=== PATIENT | female | born 1960 | race Caucasian/White ===

== ENCOUNTER 2020-12-28 08:19 | Emergency (ER) | payer OTHER, SELFPAY ==
[2020-12-28 08:19] VITALS: BP 165/106; PULSE 96; RESP 24; TEMP 36.6; O2SAT 94; BMI 43.7
[2020-12-28 08:30] VITALS: O2SAT 96
[2020-12-28 08:34] VITALS: BP 142/82; PULSE 76; RESP 18; TEMP 36.4; O2SAT 96
--- NOTE | 2020-12-28 09:03 | EKG12_ITS ---
Test Reason : SOB Blood Pressure : / mmHG Vent. Rate : 075 BPM Atrial Rate : 075 BPM P-R Int : 156 ms QRS Dur : 086 ms QT Int : 376 ms P-R-T Axes : 051 087 033 degrees QTc Int : 419 ms Sinus rhythm with Premature atrial complexes Low voltage QRS Borderline ECG Confirmed by GRISELDA BURTON, VAUGHN ([id number]), slot editor DONN PERLA ([id number]) on 12/29/2020 9:02:32 AM Referred By: RAJENDRA Confirmed By:VAUGHN VILLALOBOS MD
--- NOTE | 2020-12-28 09:03 | RAD_ITS ---
STUDY: X-RAY CHEST REASON FOR EXAM: Female, 60 years old. COUGH TECHNIQUE: Single AP portable view of the chest. COMPARISON: None. FINDINGS: EKG electrodes are seen. The lungs are clear and expanded. There is no demonstrated pleural abnormality. Normal size heart. Normal mediastinum and fredrick. Normal visualized pulmonary arteries. Normal visualized aortic arch and descending thoracic aorta. There are degenerative changes of the visualized thoracic spine. Normal visualized ribs, clavicles, and shoulders. There is no demonstrated abnormality of the visualized soft tissue structures of the upper abdomen. RAD/Chest 1 View (Portable) IMPRESSION: No acute abnormality is seen. Electronically Signed: Cristopher Flores MD at 9:33 EDT , Service support ,
--- NOTE | 2020-12-28 09:04 | EDS_ITS ---
HPI History of Present Illness Chief Complaint: Shortness of Breath Informant: patient and spouse/S.O. Narrative Narrative: 60-year-old female presents to the emergency department with chief complaint of shortness of breath. Patient states that 5 days ago she developed a sore throat followed by nasal congestion and cough. She states now she is dyspneic particularly when she lays down. She states that she coughs but cannot expectorate. She denies any fever nausea vomiting or diarrhea. She notes generalized soreness. Her was sick 1 week before she developed symptoms. [facility] Medical History HTN (hypertension) Home Medications Lipitor 10 mg PO/SL DAILY 12/28/20 [History Last Taken Unknown] albuterol sulfate [Ventolin HFA] 2 puff INHALATION Q4H PRN PRN #1 inhaler 12/28/20 [Rx Last Taken Unknown] lisinopril 10 mg PO DAILY 12/28/20 [History Last Taken Unknown] prednisone 60 mg PO DAILY #15 tablet 12/28/20 [Rx Last Taken Unknown] Allergy/AdvReac Type Severity Reaction Status Date / Time No Known Allergies Allergy Verified 12/28/20 08:35 Surgical History History of tubal ligation Hx of tonsillectomy Social History (Updated 12/28/20 @ 09:[address] Ilya Dietz DO) Smoking Status: Current every day smoker tobacco type: cigarettes substance use type: does not use ROS ROS ED Constitutional Constitutional ED: Denies chills or weight loss Eyes Eyes: Denies change in vision or diplopia ENT ENT ED: Reports rhinorrhea and sore throat; Denies ear pain Cardiovascular Cardiovascular: Denies chest pain, orthopnea, palpitations or racing heartbeat Respiratory/Chest Respiratory/Chest: Reports cough, dyspnea and dyspnea on exertion; Denies orthopnea Gastrointestinal Gastrointestinal: Denies abdominal pain, diarrhea, nausea or vomiting Genitourinary Genitourinary ED: Denies dysuria, hematuria or urinary frequency Musculoskeletal Musculoskeletal: Reports myalgias; Denies arthralgias Integumentary Denies abscess or rash Neurologic Neurologic: Denies headache(s) or weakness Psychiatric Psychiatric: Denies anxiety, depression, suicidal ideation or suicidal thoughts Endocrine Endocrinology: Denies polydipsia, polyphagia or polyuria Allergic/Immunologic Allergic/Immunologic ED: Denies mouth swelling, tongue swelling or urticaria EXAM Physical Exam Const Vital Signs: 12/28/20 08:19 12/28/20 08:30 12/28/20 08:34 Temperature 97.8 F 97.6 F L Temperature Source Temporal Temporal Pulse Rate 96 76 Respiratory Rate 24 H 18 Respiratory Effort Short of Breath Respiratory Depth Shallow Respiratory Pattern Tachypnea Blood Pressure 165/106 H 142/82 H Blood Pressure Mean 125 102 Pulse Ox 94 96 Oxygen Delivery Method Room Air Room Air Room Air 12/28/20 10:06 12/28/20 10:15 Temperature 98.3 F Temperature Source Oral Pulse Rate 81 74 Respiratory Rate 20 H 22 H Respiratory Effort Respiratory Depth Respiratory Pattern Blood Pressure 168/82 H Blood Pressure Mean 110 Pulse Ox 94 Oxygen Delivery Method Room Air Positive well developed and obese General Appearance ED: well developed Nutritional Appearance: obese HEENT Reports normocephalic, head/scalp atraumatic and moist mucous membranes Eyes PERRL and EOMs intact bilaterally Neck no lymphadenopathy, supple and no JVD Resp Resp Narrative: Patient is tachypneic. There is a faint expiratory wheeze. Cardio regular rate, regular rhythm and no murmurs GI normal to inspection, nondistended, normoactive bowel sounds and non-tender Palpation: soft Back/Spine no CVA tenderness and normal ROM Extremity normal to inspection General Extremety ED: Negative for edema General Extremity: Negative for edema Neuro oriented x3 and CN's II-XII intact bilaterally Sensorium / Orientation: alert Motor Exam: strength 5/5 throughout Psych mental status grossly normal Mood & Affect: Negative for depressed or tearful Skin no rashes or lesions noted and no wounds MDM MDM MDM Narrative Medical decision making narrative: Basic blood work showed a white count of 8 with a hemoglobin of 16.3. Troponin at 9. Glucose 124. D-dimer elevated at 0.60. My interpretation of the chest x-ray is no acute process. Because of the elevated D-dimer and her dyspnea a CTA of the chest was ordered. This was negative for infiltrate and pulmonary embolisms. Patient received a DuoNeb. She feels better. At this point I think the patient most likely has viral bronchitis with bronchospasm. We talked about smoking cessation. She is to follow-up with primary care return if worsening Lab Data Attestation: I reviewed the patient's lab results. Labs: Laboratory Results - last 24 hr 12/28/20 12/28/20 12/28/20 09:15 09:15 09:15 WBC 8.0 RBC 5.50 H Hgb 16.3 H Hct 50.0 H MCV 90.9 MCH 29.6 MCHC 32.6 RDW Std Deviation 45.2 H RDW Coeff of Kim 13.5 Plt Count 197 MPV 10.3 Immature Gran % (Auto) 0.400 Neut % (Auto) 78.5 H Lymph % (Auto) 13.1 L [place] % (Auto) 7.0 Eos % (Auto) 0.4 Baso % (Auto) 0.6 Absolute Neuts (auto) 6.3 Absolute Lymphs (auto) 1.04 Nucleated RBC % 0 D-Dimer Quant (PE/DVT) 0.60 H* Sodium 138 Potassium 4.1 Chloride 103 Carbon Dioxide 25.0 Anion Gap 10 BUN 12 Creatinine 0.90 Estim Creat Clear Calc 61.45 Est GFR (MDRD) Af Amer 82 Est GFR (MDRD) Non-Af 68 BUN/Creatinine Ratio 13.4 Glucose 124 H Calcium 9.1 Total Bilirubin 0.60 AST 27 ALT 33 Alkaline Phosphatase 85 Troponin I High Sens 9 Total Protein 8.1 Albumin 3.8 Globulin 4.3 H Albumin/Globulin Ratio 0.9 Radiography Diagnostic Testing: Clinical Impression(s) from Imaging Studies Chest X-Ray 12/28/20 09:03 IMPRESSION: No acute abnormality is seen. Electronically Signed: Cristopher Flores MD at 9:33 EDT , Service support , Chest CTA 12/28/20 09:47 IMPRESSION: No evidence of pulmonary embolism. Minimally enlarged right hilar lymph nodes. Electronically Signed: Cristopher Flores MD at 10:27 EDT , Service support , EKG Initial EKG: Attestation: I personally reviewed and interpreted this EKG as follows: Comments: Sinus rhythm with a ventricular rate of 75 bpm. PAC noted Discharge Plan Triage Chief Complaint: Shortness of Breath ED Provider: Ilya Dietz Dx/Rx/DC Orders Clinical Impression: Acute bronchitis with bronchospasm Instructions: ED Bronchitis with Wheezing (Adult) Prescriptions: New prednisone 20 MG tablet 60 mg PO DAILY Qty: 15 RF: 0 albuterol sulfate [Ventolin HFA] 1 INHALER inhaler 2 puff inhalation Q4H PRN PRN (Reason: Wheezing) Qty: 1 RF: 0 No Action lisinopril 10 mg tablet 10 mg PO DAILY RF: 0 Lipitor 10 mg PO/SL DAILY RF: 0 Primary Care Provider: Raymundo Camara Referrals: Raymundo Camara MD [Primary Care Provider] - 1 Week if not improving Disposition Disposition: Home, Self Care
[2020-12-28 09:22] LABS: Absolute Lymphocyte Count 1.04 X10^3/uL (0.83-4.51); Absolute Neutrophil Count 6.3 X10^3/uL (2.0-7.7); Basophil# 0.05 X10^3/uL; Basophil% 0.6 % (0-1); Eosinophil# 0.03 X10^3/uL; Eosinophils% 0.4 % (0-5); Hemoglobin 16.3 g/dL (12.0-15.0); Lymphocyte # 1.04 X10^3/ul (0.83-4.51); Lymphocyte % 13.1 % (19-41); Mean Corp Hgb Conc 32.6 g/dL (32-36); Mean Corpuscular Hgb 29.6 pg (27.0-32.0); Mean Corpuscular Volume 90.9 fL (81-99); Mean Platelet Vol. 10.3 fl (6.2-12.0); Monocyte# 0.56 X10^3/uL; NRBC Flagged by Analyzer 0 % (0-5); Neutrophil # 6.25 X10^3/uL (2.7-7.7); Neutrophil % 78.5 % (47-70); Platelet Count 197 K/mm3 (150-450); RBC Distribution Width CV 13.5 % (11.6-14.6); RBC Distribution Width SD 45.2 fl (35.1-43.9)
[2020-12-28 09:40] LABS: ALB/GLOB Ratio 0.9 RATIO (0.9-2.4); AST(SGOT) 27 U/L (15-37); Alanine Aminotransfer ALT/SGPT 33 U/L (13-56); Albumin, Serum 3.8 g/dL (3.2-5.0); Alkaline Phosphatase 85 U/L (45-117); Anion Gap 10 (5-15); BUN 12 mg/dL (7-18); BUN/Creat Ratio 13.4 RATIO (10-20); Calcium,Total 9.1 mg/dL (8.5-10.1); Chloride 103 mmol/L (98-107); EST Glomerular Filtration Rate 68 mL/min (>60); Est Glom Filt Rate - Afr Amer 82 mL/min (>60); Estimated Creatinine Clearance 61.45 ml/min; Globulin 4.3 g/dL (2.2-4.2); Glucose 124 mg/dL (74-106); Potassium 4.1 mmol/L (3.5-5.1); Protein, Total 8.1 g/dL (6.4-8.2); Sodium Level 138 mmol/L (136-145); Troponin-I HS 9 pg/mL (3.0-54.0)
--- NOTE | 2020-12-28 09:47 | CT_ITS ---
STUDY: CTA CHEST REASON FOR EXAM: Female, 60 years old. Pulmonary embolism elevated d dimer RADIATION DOSAGE (If Supplied By Facility): CTDIvol = ( ) mGy, DLP = ( ) mGycm TECHNIQUE: The examination was performed with the intravenous administration of IV 100mL Isovue-370. Post-processing of the angiographic images was performed, with multiplanar reformation and 3D reconstruction. Individualized dose optimization techniques were used for this CT. COMPARISON: None. FINDINGS: Normal enhancement of the main pulmonary artery and right and left pulmonary arteries. Normal enhancement of the bilateral peripheral pulmonary arteries. There is no demonstrated pulmonary embolism. Normal thoracic aorta and visualized great vessels. There is no demonstrated aortic dissection. There are calcifications of the coronary arteries. There are visualized mediastinal lymph nodes, which are within normal size limits, and with normal morphology. Minimally enlarged right hilar lymph nodes. Normal visualized trachea and bronchi. The lungs are well expanded. Normal pulmonary parenchyma. Normal pleura. Normal chest wall structures. Normal osseous structures. There is a 1.1 cm hypodense nodule in the left adrenal gland suggestive of an adenoma. Small hiatal hernia. CT/CTA Chest W/WO Contrast IMPRESSION: No evidence of pulmonary embolism. Minimally enlarged right hilar lymph nodes. Electronically Signed: Cristopher Flores MD at 10:27 EDT , Service support ,
[2020-12-28 10:06] VITALS: BP 168/82; PULSE 81; RESP 20; TEMP 36.8; O2SAT 94
[2020-12-28] MEDS: Ipratropium/Albuterol Sulfate 3 ML AMPUL.NEB INHALATION (10:12)
[2020-12-28 10:15] VITALS: PULSE 74; RESP 22
[2020-12-28 11:03] VITALS: BP 155/76; PULSE 79; PULSE 86; RESP 14; RESP 16; TEMP 36.4; O2SAT 96
== END 2020-12-28 11:10 | disposition home or self-care (01) ==
PROVIDERS: Emergency Provider Emergency Medicine; PCP Family Medicine
DX: J20.9 Acute bronchitis, unspecified (principal); F17.210 Nicotine dependence, cigarettes, uncomplicated; E66.9 Obesity, unspecified; I10 Essential (primary) hypertension; Z79.899 Other long term (current) drug therapy
CPT/HCPCS: 71045; 71275; 80053; 84484; 85025; 85379; 87426; 93005; 94640; 99284; Q9967; A4216